=== PATIENT | female | born 1995 ===

== ENCOUNTER 2023-08-26 09:14 | Outpatient (CLI) | payer OTHER | END 2023-08-26 10:57 | disposition home or self-care (01) | LOC: PRENATAL 09:14 | PROVIDERS: ATTEND Obstetrics & Gynecology Maternal & Fetal Medicine | DX: O35.3XX0 Maternal care for (suspected) damage to fetus from viral disease in mother, not applicable or unspecified (principal); O44.00 Complete placenta previa NOS or without hemorrhage, unspecified trimester; Z3A.20 20 weeks gestation of pregnancy ==

== ENCOUNTER 2023-10-16 09:47 | Outpatient (CLI) | payer OTHER | END 2023-10-16 09:48 | disposition home or self-care (01) | LOC: PRENATAL 09:47 | PROVIDERS: ATTEND Obstetrics & Gynecology Maternal & Fetal Medicine | DX: O26.849 Uterine size-date discrepancy, unspecified trimester (principal); O43.90 Unspecified placental disorder, unspecified trimester; Z3A.27 27 weeks gestation of pregnancy ==

== ENCOUNTER 2023-11-14 17:16 | Outpatient (CLI) | payer OTHER | END 2023-11-14 17:39 | disposition home or self-care (01) | LOC: NST 17:16 | PROVIDERS: ATTEND Obstetrics & Gynecology | DX: Z34.83 Encounter for supervision of other normal pregnancy, third trimester (principal) ==

== ENCOUNTER 2023-11-22 08:51 | Outpatient (CLI) | payer OTHER | END 2023-11-22 08:52 | disposition home or self-care (01) | LOC: PRENATAL 08:51 | PROVIDERS: ATTEND Obstetrics & Gynecology Maternal & Fetal Medicine | DX: O26.849 Uterine size-date discrepancy, unspecified trimester (principal); O36.8199 Decreased fetal movements, unspecified trimester, other fetus; O43.90 Unspecified placental disorder, unspecified trimester; Z3A.33 33 weeks gestation of pregnancy ==

== ENCOUNTER 2023-12-05 13:33 | Outpatient (CLI) | payer OTHER ==
[2023-12-05] MEDS ORDERED: PRENATAL TABLE1 EAC1 PO (14:34)
[2023-12-05 15:04] LABS: PH,URINE 5.5 (5.0-8.0); URINE APPEARANCE Cloudy; URINE BILIRRUBIN Negative (NEGATIVE); URINE BLOOD Negative; URINE COLOR Yellow; URINE EPITHELIAL CELLS 124.6 uL (0.0-38.8); URINE LEUKOCYTE Trace; URINE NITRATE Negative; URINE PROTEIN Negative (NEGATIVE); URINE UROBILINOGEN 0.2 E.U./dl; URINE WBC 69.2 uL (0.0-23.2)
[2023-12-05 15:11] LABS: HEMATOCRIT 38.3 % (36.0-45.00); HEMOGLOBIN 13.1 g/dL (12.0-15.00); MEAN CELL VOLUME 88.4 fL (80.00-100.00); MEAN CORPUSCULAR HEMOGLOBIN 30.1 pg (27.00-32.0); MEAN CORPUSCULAR HGB CONC 34.1 g/dl (32.0-36.0); PLATELET COUNT 261 K/uL (150-450); RED BLOOD COUNT 4.34 M/uL (4.00-6.00); RED CELL DISTRIBUTION WIDTH 13.8 % (11.5-14.5)
[2023-12-05 15:13] LABS: URINE GLUCOSE 250 MG/DL (NEGATIVE); URINE RBC 0.4 uL (0.0-20.8)
[2023-12-05 15:25] LABS: INR 0.95
[2023-12-05 15:32] LABS: CALCIUM 9.3 mg/dL (8.5-10.1); CREATININE SERUM 0.58 mg/dL (0.55-1.02); GFR 125.66; POTASSIUM 3.98 mEq/L (3.5-5.1)
[2023-12-05 15:33] LABS: ALBUMIN 2.8 gm/dL (3.4-5.0); BILIRUBIN TOTAL 0.38 mg/dL (0.3-1.2); CALCIUM 9.3 mg/dL (8.5-10.1); CREATININE SERUM 0.61 mg/dL (0.55-1.02); GFR 118.56; POTASSIUM 3.91 mEq/L (3.5-5.1); TOTAL PROTEIN 6.8 gm/dL (6.4-8.2)
== END 2023-12-06 09:16 | disposition home or self-care (01) ==
LOC: OBS/DEL 13:33
PROVIDERS: ATTEND Obstetrics & Gynecology
DX: O36.8130 Decreased fetal movements, third trimester, not applicable or unspecified (principal); Z3A.35 35 weeks gestation of pregnancy

== ENCOUNTER 2024-01-06 06:00 | Inpatient (IN) | payer OTHER ==
[~2024-01-06] VITALS: Ht 165.1 cm; Wt 88.9 kg
[~2024-01-06 06:00] MED LIST: PRENATAL TABLE1 EAC1 PO
[2024-01-06] MEDS ORDERED: RINGERS SOLUTION,LACTATED 1,000 ML IV SCH ×2 (06:15→22:00)
[2024-01-06] MEDS ORDERED: AMPICILLIN SODIUM 2,000 MG VIAL IV ONE (06:15)
[2024-01-06 07:11] LABS: PH,URINE 5.5 (5.0-8.0); URINE APPEARANCE Clear; URINE BILIRRUBIN Negative (NEGATIVE); URINE BLOOD Negative; URINE COLOR Yellow; URINE LEUKOCYTE Trace; URINE NITRATE Negative; URINE PROTEIN Negative (NEGATIVE)
[2024-01-06 07:15] LABS: URINE BACTERIA 2699.9 uL (0.0-1933); URINE EPITHELIAL CELLS 52.5 uL (0.0-38.8)
[2024-01-06 07:30] LABS: HEMATOCRIT 38.2 % (36.0-45.00); HEMOGLOBIN 12.9 g/dL (12.0-15.00); MEAN CELL VOLUME 86.9 fL (80.00-100.00); MEAN CORPUSCULAR HEMOGLOBIN 29.4 pg (27.00-32.0); MEAN CORPUSCULAR HGB CONC 33.9 g/dl (32.0-36.0); PLATELET COUNT 236 K/uL (150-450); RED BLOOD COUNT 4.39 M/uL (4.00-6.00); RED CELL DISTRIBUTION WIDTH 14.2 % (11.5-14.5)
[2024-01-06 07:55] LABS: INR < 0.93; PARTIAL THROMBOPLASTIN TIME 24.6 SECONDS (22.0-34.0); PROTHROMBIN TIME 9.6 SECONDS (9.0-11.5)
[2024-01-06 08:02] LABS: CALCIUM 9.7 mg/dL (8.5-10.1); CREATININE SERUM 0.58 mg/dL (0.55-1.02); GFR 125.66; POTASSIUM 4.27 mEq/L (3.5-5.1)
[2024-01-06 08:16] LABS: URINE GLUCOSE 500 MG/DL (NEGATIVE); URINE RBC 1.7 uL (0.0-20.8)
[2024-01-06] MEDS ORDERED: MISOPROSTOL 25 MCG/4 ML GEL.W.APPL VAG STA (08:18)
[2024-01-06] MEDS ORDERED: AMPICILLIN SODIUM 1,000 MG VIAL IV SCH (09:00)
[2024-01-06] MEDS ORDERED: OXYTOCIN 500 ML IV SCH (12:45)
[2024-01-06] MEDS ORDERED: MORPHINE SULFATE 4 MG/ML VIAL IV STA (14:40)
[2024-01-06] MEDS ORDERED: OXYTOCIN 10 UNITS/ML VIAL ONE ×2 (18:33)
[2024-01-06] MEDS ORDERED: ERYTHROMYCIN BASE 3.5 GM OINT...G. OP ONE (18:33)
[2024-01-06] MEDS ORDERED: CEFAZOLIN SODIUM 1,000 MG VIAL ONE (19:26)
[2024-01-06] MEDS ORDERED: CEFAZOLIN SODIUM 1,000 MG VIAL IV ONE (21:15)
[2024-01-06] MEDS ORDERED: AMPICILLIN SODIUM 1,000 MG VIAL ONE ×2 (21:19→23:51)
[2024-01-06] MEDS ORDERED: MORPHINE SULFATE 4 MG/ML VIAL IV PRN (22:00)
[2024-01-06] MEDS ORDERED: OXYTOCIN 1,000 ML IV SCH (22:00)
[2024-01-07 02:00] LABS: HEMATOCRIT 39.1 % (36.0-45.00); HEMOGLOBIN 13.2 g/dL (12.0-15.00); MEAN CELL VOLUME 87.8 fL (80.00-100.00); MEAN CORPUSCULAR HEMOGLOBIN 29.6 pg (27.00-32.0); MEAN CORPUSCULAR HGB CONC 33.7 g/dl (32.0-36.0); PLATELET COUNT 210 K/uL (150-450); RED BLOOD COUNT 4.46 M/uL (4.00-6.00); RED CELL DISTRIBUTION WIDTH 14.1 % (11.5-14.5)
[2024-01-07] MEDS ORDERED: IBUprofen 800 MG TABLET PO PRN (08:00)
[2024-01-07] MEDS ORDERED: SIMETHICONE 125 MG CAPSULE PO SCH (09:00)
[2024-01-07] MEDS ORDERED: IBUprofen 400 MG TABLET PO PRN (09:00)
[2024-01-07] MEDS ORDERED: DOCUSATE SODIUM 100MG CAP PO SCH (09:00)
== END 2024-01-09 13:18 | disposition home or self-care (01) | DRG 788 ==
LOC: LDR 06:00 → O/R 06:00 → OB/GYN 21:37
PROVIDERS: ADMIT Obstetrics & Gynecology; ATTEND Obstetrics & Gynecology
PROC: 4A1HXCZ Monitoring of Products of Conception, Cardiac Rate, External Approach (ICD-10-PCS; 2024-01-06)
PROC: 3E033VJ Introduction of Other Hormone into Peripheral Vein, Percutaneous Approach (ICD-10-PCS; 2024-01-06)
PROC: 3E0P7VZ Introduction of Hormone into Female Reproductive, Via Natural or Artificial Opening (ICD-10-PCS; 2024-01-06)
PROC: 10D00Z1 Extraction of Products of Conception, Low, Open Approach (ICD-10-PCS; principal; 2024-01-06 19:00)
DX: O36.8330 Maternal care for abnormalities of the fetal heart rate or rhythm, third trimester, not applicable or unspecified (principal); O99.824 Streptococcus B carrier state complicating childbirth; Z3A.39 39 weeks gestation of pregnancy; Z37.0 Single live birth; Z20.822 Contact with and (suspected) exposure to COVID-19

== ENCOUNTER 2025-04-13 15:47 | Outpatient (CLI) | payer OTHER | END 2025-04-13 15:52 | disposition home or self-care (01) | LOC: PRENATAL 15:47 | PROVIDERS: ATTEND Obstetrics & Gynecology Maternal & Fetal Medicine | DX: O26.849 Uterine size-date discrepancy, unspecified trimester (principal); O34.219 Maternal care for unspecified type scar from previous cesarean delivery; Z36.0 Encounter for antenatal screening for chromosomal anomalies; Z3A.15 15 weeks gestation of pregnancy ==

== ENCOUNTER → 2025-05-17 09:24 | Outpatient (CLI) | payer OTHER | END | disposition home or self-care (01) | LOC: PRENATAL 09:24 | PROVIDERS: ATTEND Obstetrics & Gynecology Maternal & Fetal Medicine | DX: O44.00 Complete placenta previa NOS or without hemorrhage, unspecified trimester (principal); O34.219 Maternal care for unspecified type scar from previous cesarean delivery; Z3A.19 19 weeks gestation of pregnancy ==

== ENCOUNTER → 2025-08-06 08:18 | Outpatient (CLI) | payer OTHER | END | disposition home or self-care (01) | LOC: PRENATAL 08:18 | PROVIDERS: ATTEND Obstetrics & Gynecology Maternal & Fetal Medicine | DX: O26.849 Uterine size-date discrepancy, unspecified trimester (principal); O36.8130 Decreased fetal movements, third trimester, not applicable or unspecified; O34.219 Maternal care for unspecified type scar from previous cesarean delivery; Z3A.31 31 weeks gestation of pregnancy ==

== ENCOUNTER 2025-09-01 15:37 | Outpatient (CLI) | payer OTHER | END 2025-09-01 15:38 | disposition home or self-care (01) | LOC: PRENATAL 15:37 | PROVIDERS: ATTEND Obstetrics & Gynecology Maternal & Fetal Medicine | DX: O26.849 Uterine size-date discrepancy, unspecified trimester (principal); O36.8130 Decreased fetal movements, third trimester, not applicable or unspecified; O34.219 Maternal care for unspecified type scar from previous cesarean delivery; Z3A.34 34 weeks gestation of pregnancy ==

== ENCOUNTER 2025-09-10 10:33 | Inpatient (IN) | payer OTHER ==
[~2025-09-10] VITALS: Ht 165.1 cm; Wt 2.7 kg
[2025-09-10 11:36] LABS: URINE APPEARANCE Cloudy; URINE BILIRRUBIN Small (NEGATIVE); URINE BLOOD Negative; URINE COLOR Dark Yellow; URINE GLUCOSE Negative (NEGATIVE); URINE LEUKOCYTE Small; URINE NITRATE Negative; URINE PROTEIN 30 (NEGATIVE); URINE UROBILINOGEN 1.0 E.U./dl
[2025-09-10 11:41] LABS: URINE EPITHELIAL CELLS 191.9 uL (0.0-38.8); URINE WBC 112.7 uL (0.0-23.2)
[2025-09-10 11:46] LABS: BASO % 0.2 % (0.1-1.2); EOS # 0.04 (0.04-0.54); EOS % 0.7 % (0.7-7.0); LYMPH # 0.74 (1.18-3.74); LYMPH % 12.4 % (19.3-53.1); MEAN PLATELET VOLUME 10.60 fl (9.4-12.4); MONO # 0.72 (0.24-0.82); MONO % 12.0 % (4.7-12.5); NEUT # 4.45 (1.56-6.13); NEUT % 74.2 % (34.0-71.1); RED CELL DISTRIBUTION WIDTH 14.3 % (11.6-14.4)
[2025-09-10 12:16] LABS: INR 0.95
[2025-09-10 12:20] LABS: URINE BACTERIA > 9821.5 uL (0.0-1933); URINE CAST 0.29 uL (0.0-1.40); URINE KETONE >=160 (NEGATIVE); URINE RBC 1.6 uL (0.0-20.8)
[2025-09-10 12:21] LABS: URINE CRYSTALS FEW /HPF
[2025-09-10 12:26] LABS: ALT/SGPT 48.0 U/L (12-78); AST/SGOT 52.0 U/L (15-37); BILIRUBIN TOTAL 0.53 mg/dL (0.3-1.2); BUN CREA RATIO 12.0 (7.0-25.0); CREATININE SERUM 0.52 mg/dL (0.55-1.02); GFR 140.41; GLOBULINA 3.8 G/DL (2.4-3.5); GLUCOSE FASTING 89.0 mg/dL (65-100); OSMOLALITY SERUM 275.0 MOSM/KG (275-295)
[2025-09-15 21:30] VITALS: BP 105/67
[2025-09-15] MEDS ORDERED: ERYTHROMYCIN BASE OPHT 1GM EACH TUBE OP ONE (21:42)
[2025-09-15] MEDS ORDERED: OXYTOCIN 10 UNITS/ML VIAL ONE (21:42)
[2025-09-15] MEDS ORDERED: PRENATAL TABLE1 EAC4 PO (21:51)
[2025-09-15] MEDS ORDERED: AMPICILLIN TRI500 MG PO (21:51)
[2025-09-15] MEDS ORDERED: RINGERS SOLUTION,LACTATED 1,000 ML IV SCH (22:00)
[2025-09-15] MEDS ORDERED: CEFAZOLIN SODIUM 1,000 MG VIAL IV SCH (22:00)
[2025-09-16] MEDS ORDERED: MORPHINE SULFATE 4 MG/ML CARTRIDGE IV PRN (00:30)
[2025-09-16] MEDS ORDERED: OXYTOCIN 1,000 ML IV SCH (01:15)
[2025-09-16] MEDS ORDERED: RINGERS SOLUTION,LACTATED 1,000 ML IV SCH (01:15)
[2025-09-16] MEDS ORDERED: OXYTOCIN 10 UNITS/ML VIAL ONE (01:31)
[2025-09-16 03:14] VITALS: BP 102/62
[2025-09-16 06:47] LABS: BASO % 0.1 % (0.1-1.2); EOS # 0.01 (0.04-0.54); EOS % 0.1 % (0.7-7.0); LYMPH # 1.10 (1.18-3.74); LYMPH % 7.4 % (19.3-53.1); MEAN PLATELET VOLUME 10.90 fl (9.4-12.4); MONO # 0.69 (0.24-0.82); MONO % 4.6 % (4.7-12.5); NEUT # 12.97 (1.56-6.13); NEUT % 87.4 % (34.0-71.1); RED CELL DISTRIBUTION WIDTH 13.2 % (11.6-14.4)
[2025-09-16 08:52] VITALS: BP 114/75
[2025-09-16] MEDS ORDERED: DOCUSATE SODIUM 100MG CAP PO SCH (09:00)
[2025-09-16] MEDS ORDERED: SIMETHICONE 125 MG CAPSULE PO SCH (09:00)
[2025-09-16 17:04] VITALS: BP 98/67
[2025-09-16] MEDS ORDERED: ERYTHROMYCIN BASE OPHT 1GM EACH TUBE OP ONE (17:30)
[2025-09-16] MEDS ORDERED: OXYTOCIN 10 UNITS/ML VIAL IV ONE (17:30)
[2025-09-17 00:51] VITALS: BP 110/74
[2025-09-17 08:00] VITALS: BP 108/67
[2025-09-17] MEDS ORDERED: KETOROLAC TROMETHAMINE 30 MG VIAL IM ONE (09:15)
[2025-09-17 16:30] VITALS: BP 110/70
[2025-09-17 21:00] VITALS: BP 102/63
[2025-09-18] VITALS: BP 103/65
[2025-09-18 09:20] VITALS: BP 103/69
== END 2025-09-18 11:59 | disposition home or self-care (01) | DRG 785 ==
LOC: OB/GYN 09-14 10:14 → LDR 09-15 21:46 → OB/GYN 09-16 00:55
PROVIDERS: ADMIT Obstetrics & Gynecology; ATTEND Obstetrics & Gynecology
PROC: 0UB70ZZ Excision of Bilateral Fallopian Tubes, Open Approach (ICD-10-PCS; 2025-09-15)
PROC: 4A1HXCZ Monitoring of Products of Conception, Cardiac Rate, External Approach (ICD-10-PCS; 2025-09-15)
PROC: 10D00Z1 Extraction of Products of Conception, Low, Open Approach (ICD-10-PCS; principal; 2025-09-15 22:30)
DX: O34.211 Maternal care for low transverse scar from previous cesarean delivery (principal); O99.824 Streptococcus B carrier state complicating childbirth; Z3A.37 37 weeks gestation of pregnancy; Z37.0 Single live birth; Z30.2 Encounter for sterilization

== ENCOUNTER 2025-09-15 18:44 | Outpatient (CLI) | payer OTHER ==
[~2025-09-15] VITALS: Ht 165.1 cm; Wt 88.0 kg
[2025-09-15 17:00] VITALS: BP 110/61
[2025-09-15] MEDS ORDERED: RINGERS SOLUTION,LACTATED 1,000 ML IV SCH (19:00)
[2025-09-15] MEDS ORDERED: AMPICILLIN SODIUM 2,000 MG VIAL IV ONE (19:30)
[2025-09-15 20:05] VITALS: BP 105/67
[2025-09-15] MEDS ORDERED: AMPICILLIN SODIUM 1,000 MG VIAL IV SCH (21:00)
[2025-09-15] MEDS ORDERED: CEFAZOLIN SODIUM 1,000 MG VIAL ONE (21:33)
[2025-09-15] MEDS ORDERED: PRENATAL TABLE1 EAC4 PO (21:51)
[2025-09-15] MEDS ORDERED: AMPICILLIN TRI500 MG PO (21:51)
[2025-09-16] MEDS ORDERED: AMPICILLIN SODIUM 1,000 MG VIAL IV SCH
== END 2025-09-15 19:26 | disposition still patient (30) ==
LOC: OBS/DEL 18:44
PROVIDERS: ATTEND Obstetrics & Gynecology
DX: O26.893 Other specified pregnancy related conditions, third trimester (principal)